=== PATIENT | male | born 1990 | race Caucasian/White ===

== ENCOUNTER 2017-05-02 20:01 | Emergency (ER) | payer BC, OTHER ==
[~2017-05-02 20:01] MED LIST: RISP4TAB34 PO
[2017-05-02] MEDS ORDERED: HYDROcodone/APAP 5/325 TABLET ONE (20:57)
[2017-05-02] MEDS ORDERED: IBUPROFEN 200 MG TABLET ONE (20:57)
== END 2017-05-02 22:24 ==
LOC: ED 20:01
DX: S22.42XA Multiple fractures of ribs, left side, initial encounter for closed fracture (principal); X58.XXXA Exposure to other specified factors, initial encounter; Y93.89 Activity, other specified; Y99.8 Other external cause status; Y92.89 Other specified places as the place of occurrence of the external cause
CPT/HCPCS: 99284

== ENCOUNTER 2017-05-07 12:32 | Emergency (ER) | payer BC ==
[~2017-05-07] VITALS: Ht 182.9 cm; Wt 80.7 kg
[2017-05-07] MEDS ORDERED: KETOROLAC 30 MG/1 ML IM ONE (14:00)
[2017-05-07] MEDS ORDERED: OXYcodone/APAP 5/325MG TABLET PO ONE (14:00)
[2017-05-07] MEDS ORDERED: KETOROLAC 30 MG/1 ML ONE (14:17)
[2017-05-07] MEDS ORDERED: OXYcodone/APAP 5/325MG TABLET ONE (14:17)
[2017-05-07 14:36] VITALS: BP 127/84
== END 2017-05-07 14:48 | disposition home or self-care (01) ==
LOC: ED 14:42
DX: S20.212A Contusion of left front wall of thorax, initial encounter (principal); F19.10 Other psychoactive substance abuse, uncomplicated; X58.XXXA Exposure to other specified factors, initial encounter; Y93.89 Activity, other specified; Y99.8 Other external cause status; Y92.009 Unspecified place in unspecified non-institutional (private) residence as the place of occurrence of the external cause
CPT/HCPCS: 71020; 96372; 99284; J1885

== ENCOUNTER 2017-05-16 20:59 | Emergency (ER) | payer BC ==
[~2017-05-16] VITALS: Ht 182.9 cm; Wt 79.5 kg
[2017-05-16 21:00] VITALS: BP 118/84
== END 2017-05-16 23:17 | disposition left against medical advice (07) ==
LOC: ED 23:11
DX: R06.02 Shortness of breath (principal); Z53.21 Procedure and treatment not carried out due to patient leaving prior to being seen by health care provider
CPT/HCPCS: 93005

== ENCOUNTER 2019-12-10 14:15 | Emergency (ER) | payer BC, MEDICAID ==
[~2019-12-10] VITALS: Ht 180.3 cm; Wt 77.3 kg
[2019-12-10 14:18] VITALS: BP 128/72
--- NOTE | 2019-12-10 14:52 | NUR ---
LATE NOTE ENTRY DUE TO PT CARE: Pt resting on gurney in SI/HI secured room with all personal belongings removed (shoes, jacket, pants, belt) in 1 of 1 personal belonging bag labeled and placed in ED locker for safe keeping. Pt reports last Invega injection "mid September (2018)" for schizoaffective disorder. Pt reports medication prevented him from "heightened awareness in solving a computer theory of time travel". Pt reports use of alcohol and methamphetamines to "dull" or "heighten" his awareness. Pt reports homelessness at this time and removing himself from friends and family interaction at this time. Pt reports parents and siblings live in this area and "have not offered help to him" when he has reached out. Pt reports currently "being on meth" and last drink was "some time last night to counteract the meth heightened awareness". Pt denies current SI or HI. Pt reports SA "last June" with overdose on psych medications. Pt reports "multiple hospitalizations for alcohol withdrawal but never had severe DT symptoms and didn't have seizures".
--- NOTE | 2019-12-10 15:05 | NUR ---
Asked pt to provide urine sample, pt declines ability at this time.
[2019-12-10 15:35] LABS: BASOPHILS # (AUTO) 0.02 x10^3/uL (0-0.1); BASOPHILS % (AUTO) 0 % (0-1); EOSINOPHILS # (AUTO) 0.12 x10^3/uL (0-0.4); EOSINOPHILS % (AUTO) 2 % (1-7); LYMPHOCYTES # (AUTO) 1.49 x10^3/uL (1-3.4); LYMPHOCYTES % (AUTO) 25 % (22-44); MD NO; MEAN CORPUSCULAR HEMOGLOBIN 32.1 pg (27.5-34.5); MEAN CORPUSCULAR HGB CONC 33.9 g/dL (33.2-36.2); MEAN CORPUSCULAR VOLUME 94.7 fL (81-97); MEAN PLATELET VOLUME 8.2 fL (7.4-10.4); MONOCYTES # (AUTO) 0.72 x10^3/uL (0.2-0.8); MONOCYTES % (AUTO) 12 % (2-9); NEUTROPHILS # (AUTO) 3.59 x10^3/uL (1.8-6.8); NEUTROPHILS % (AUTO) 60 % (42-75); PLATELET COUNT 248 x10^3/uL (130-400); RED BLOOD COUNT 4.95 x10^6/uL (4.38-5.82); RED CELL DISTRIBUTION WIDTH 12.6 % (9.4-14.8)
[2019-12-10 15:45] LABS: ALBUMIN 3.7 g/dL (3.4-5.0); ANION GAP 7 mmol/L (5-15); CALCIUM 8.9 mg/dL (8.5-10.1); CHLORIDE 108 mmol/L (98-107); CREATININE 1.09 mg/dL (0.7-1.3)
[2019-12-10 15:49] LABS: SALICYLATE LEVEL < 1.7 mg/dL (2.8-20.0)
--- NOTE | 2019-12-10 15:53 | NUR ---
Pt states "disrespect and irritation that he can tell the ER doctor just thinks I am crazy. I can help bring her to her higherself and enlighten her...I am here to discuss my theories with a medical doctor." Pt verbally redirected and educated on the Emergency dept and EDMD role. Pt stated verbal understanding.
[2019-12-10 16:02] LABS: AMPHETAMINE SCREEN, URINE Positive (Negative); BARBITURATE SCREEN, URINE Negative (Negative); BENZODIAZEPINE SCREEN, URINE Negative (Negative); CANNABINOID SCREEN, URINE Negative (Negative); COCAINE SCREEN, URINE Negative (Negative); METHADONE SCREEN, URINE Negative (Negative); OPIATE SCREEN, URINE Negative (Negative)
--- NOTE | 2019-12-10 16:56 | NUR ---
Sitter near pt doorway in direct line of sight for observation. Food tray provided for pt. Pt resting on gurney talking to sitter. Room remains secured for SI/HI.
--- NOTE | 2019-12-10 18:06 | NUR ---
Provided report to FARHAT Singh for behavioral health. All questions answered. Pt ready to be transfered from ED to behavioral health.
--- NOTE | 2019-12-10 18:10 | NUR ---
Pt transfered from ED to Behavioral health with coil repair technician and sitter by wheelchair. Pt left with all personal belongings.
[2019-12-10] MEDS ORDERED: QUETIAPINE 100MG TABLET PO SCH (21:00)
== END 2019-12-10 18:12 ==
LOC: ED 16:10
DX: F15.959 Other stimulant use, unspecified with stimulant-induced psychotic disorder, unspecified (principal); F22 Delusional disorders
CPT/HCPCS: 36415; 80048; 80307; 82040; 85025; 99284; 99285

== ENCOUNTER 2019-12-10 17:43 | Inpatient (IN) | payer MEDICAID ==
[~2019-12-10] VITALS: Ht 182.9 cm; Wt 76.8 kg
[2019-12-10] MEDS ORDERED: POLYETHYLENE GLYCOL 17 GM PACKET PO PRN (18:30)
[2019-12-10] MEDS ORDERED: DOCUSATE 100 MG CAPSULE PO PRN (18:30)
[2019-12-10] MEDS ORDERED: BISACODYL 10 MG SUPP PR PRN (18:30)
[2019-12-10] MEDS ORDERED: ONDANSETRON ODT 4 MG PO PRN (18:30)
[2019-12-10] MEDS ORDERED: ACETAMINOPHEN 325 MG TABLET PO PRN (18:30)
[2019-12-10 19:13] LABS: CHOL/HDL RATIO 2.1; FREE T4 (FREE THYROXINE) 1.59 ng/dL (0.76-1.46); LDL/HDL RATIO 0.8 (0.5-3.0)
[2019-12-10 20:15] VITALS: BP 108/74
[2019-12-11 00:19] VITALS: BP 123/82
[2019-12-11 05:51] LABS: BASOPHILS # (AUTO) 0.03 x10^3/uL (0-0.1); BASOPHILS % (AUTO) 1 % (0-1); EOSINOPHILS # (AUTO) 0.14 x10^3/uL (0-0.4); EOSINOPHILS % (AUTO) 2 % (1-7); LYMPHOCYTES # (AUTO) 1.13 x10^3/uL (1-3.4); LYMPHOCYTES % (AUTO) 17 % (22-44); MD NO; MEAN CORPUSCULAR HEMOGLOBIN 32.4 pg (27.5-34.5); MEAN CORPUSCULAR VOLUME 95.1 fL (81-97); MEAN PLATELET VOLUME 8.7 fL (7.4-10.4); MONOCYTES # (AUTO) 0.64 x10^3/uL (0.2-0.8); MONOCYTES % (AUTO) 10 % (2-9); NEUTROPHILS # (AUTO) 4.86 x10^3/uL (1.8-6.8); NEUTROPHILS % (AUTO) 71 % (42-75); PLATELET COUNT 226 x10^3/uL (130-400); RED BLOOD COUNT 4.84 x10^6/uL (4.38-5.82); RED CELL DISTRIBUTION WIDTH 12.8 % (9.4-14.8)
[2019-12-11 06:05] LABS: CHLORIDE 112 mmol/L (98-107)
[2019-12-11 06:10] LABS: ANION GAP 5 mmol/L (5-15); CALCIUM 8.6 mg/dL (8.5-10.1); CREATININE 1.02 mg/dL (0.7-1.3)
[2019-12-11 07:37] VITALS: BP 115/66
[2019-12-11] MEDS ORDERED: DOCUSATE 100 MG CAPSULE PO PRN (09:30)
[2019-12-11] MEDS ORDERED: IBUPROFEN 600 MG TABLET PO PRN (09:30)
[2019-12-11] MEDS ORDERED: ACETAMINOPHEN 325 MG TABLET PO PRN (09:30)
[2019-12-11 10:21] LABS: MICROSCOPIC NOT IND
[2019-12-11 10:28] LABS: CULTURE INDICATED? NO
[2019-12-11] MEDS ORDERED: LORazepam 1MG TABLET PO PRN (16:00)
[2019-12-11] MEDS ORDERED: HYDROXYZINE PAMOATE 50MG CAP PO PRN (16:00)
[2019-12-11] MEDS ORDERED: HALOPERIDOL 5 MG TABLET PO PRN (16:00)
[2019-12-11 20:01] VITALS: BP 105/77
[2019-12-12 07:20] VITALS: BP 113/66
[2019-12-12 07:42] VITALS: BP 107/67
[2019-12-12 19:00] VITALS: BP 122/73
[2019-12-13 07:38] VITALS: BP 96/58
[2019-12-13] MEDS ORDERED: NICOTINE 14MG/24 HR PATCH.TD24 ONE (18:27)
[2019-12-13] MEDS: NICOTINE 14MG/24 HR PATCH.TD24 TD SCH (18:29)
[2019-12-13 19:02] VITALS: BP 94/55
[2019-12-14 07:05] VITALS: BP 113/71
[2019-12-14] MEDS: NICOTINE 14MG/24 HR PATCH.TD24 TD SCH (11:11)
[2019-12-14 19:21] VITALS: BP 103/61
[2019-12-15 07:30] VITALS: BP 111/78
[2019-12-15] MEDS: NICOTINE 14MG/24 HR PATCH.TD24 TD SCH (10:17)
[2019-12-15 20:10] VITALS: BP 108/70
[2019-12-16 07:37] VITALS: BP 100/65
[2019-12-16] MEDS: NICOTINE 14MG/24 HR PATCH.TD24 TD SCH (10:34)
[2019-12-16] MEDS ORDERED: NICO-486 TD (13:37)
[2019-12-16 19:57] VITALS: BP 106/69
[2019-12-17 07:35] VITALS: BP 97/62
== END 2019-12-17 10:45 | disposition home or self-care (01) | DRG 885 ==
LOC: 3E 18:41
PROVIDERS: ADMIT Psychiatry & Neurology Psychosomatic Medicine; ATTEND Psychiatry & Neurology Psychosomatic Medicine
DX: F25.0 Schizoaffective disorder, bipolar type (principal); F15.20 Other stimulant dependence, uncomplicated; F17.200 Nicotine dependence, unspecified, uncomplicated; Z91.14 Patient's other noncompliance with medication regimen; Z88.8 Allergy status to other drugs, medicaments and biological substances; Z82.49 Family history of ischemic heart disease and other diseases of the circulatory system
CPT/HCPCS: 36415; 71045; 80048; 80061; 81003; 82607; 84439; 84443; 85025; 93005

== ENCOUNTER 2020-02-28 00:44 | Emergency (ER) | payer MEDICAID ==
[~2020-02-28] VITALS: Ht 182.9 cm; Wt 73.8 kg
[~2020-02-28 00:44] MED LIST changes: +NICO-486 TD
[2020-02-28] MEDS ORDERED: methylPREDNISolone SOD SUCC 125 MG/2 ML ONE (01:08)
[2020-02-28] MEDS ORDERED: FAMOTIDINE 20 MG/2 ML ONE (01:08)
[2020-02-28] MEDS ORDERED: DIPHENHYDRAMINE 50 MG/ML, 1ML ONE (01:08)
[2020-02-28] MEDS ORDERED: methylPREDNISolone SOD SUCC 125 MG/2 ML IVPush ONE (01:30)
[2020-02-28] MEDS ORDERED: DIPHENHYDRAMINE 50 MG/ML, 1ML IVPush ONE (01:30)
[2020-02-28] MEDS ORDERED: FAMOTIDINE 20 MG TABLET PO ONE (01:30)
[2020-02-28] MEDS ORDERED: DIPHENHYDRAMINE 50 MG CAPSULE PO ONE (01:30)
[2020-02-28] MEDS ORDERED: FAMOTIDINE 20 MG/2 ML IVPush ONE (01:30)
[2020-02-28 02:28] VITALS: BP 123/82
== END 2020-02-28 02:41 | disposition home or self-care (01) ==
LOC: ED 01:39
DX: L50.0 Allergic urticaria (principal); F20.9 Schizophrenia, unspecified
CPT/HCPCS: 96374; 96375; 99284; J1200; J2930; J3490